=== PATIENT | male | born 1990 | race Two or more races ===

== ENCOUNTER 2022-01-15 08:38 | Emergency (ER) | payer MEDICAID ==
[~2022-01-15] VITALS: Ht 172.7 cm; Wt 95.3 kg
--- NOTE | 2022-01-15 08:49 | NUR ---
JENNIFER 62 FROM , C/O SOB, BINGE DRINKING X 3 DAYS, ADMITS TO CONSUMING 3 CASES OF BEER /DAY, LAST USED COCAINE A YEAR AGO, HYPERVENTILATING. TO ER BED 13.
[2022-01-15] MEDS ORDERED: LORAZEPAM INJ 2 MG/ML VIAL IV ONE ×2 (09:00→13:30)
[2022-01-15] MEDS ORDERED: IV NS 0.9% 1,000 ML IV ONE ×2 (09:00→13:30)
[2022-01-15] MEDS ORDERED: LORAZEPAM INJ 2 MG/ML VIAL ONE ×2 (09:01→13:17)
--- NOTE | 2022-01-15 13:09 | NUR ---
DR LARA SPEAKING W/ PT, BROADCAST TRANSMITTER OPERATOR AT BEDSIDE
[2022-01-15 13:32] LABS: BASOPHILS % (AUTO) 0.3 % (0.0-2.0); EOSINOPHILS % (AUTO) 0.1 % (0.0-6.0); HEMATOCRIT 47 % (39-51); HEMOGLOBIN 16.2 g/dL (13.5-17.5); LYMPHOCYTES # (AUTO) 2.4 K/uL (0.8-4.8); LYMPHOCYTES % (AUTO) 17.1 % (20.0-44.0); MEAN CORPUSCULAR HGB CONC 35 g/dl (31.0-36.0); MEAN CORPUSCULAR VOLUME 90 fL (80-96); MONOCYTES % (AUTO) 6.9 % (2.0-12.0); NEUTROPHILS # (AUTO) 10.5 K/uL (1.8-8.9); NEUTROPHILS % (AUTO) 75.6 % (43.0-81.0); PLATELET COUNT (AUTO) 332 K/uL (150-450); RED BLOOD CELL COUNT(AUTO) 5.19 MIL/uL (4.5-6.0)
[2022-01-15 13:42] LABS: CALCIUM, SERUM 9.6 mg/dL (8.5-10.1); CREATININE 1.4 mg/dL (0.6-1.3); POTASSIUM 3.6 mmol/L (3.5-5.1)
[2022-01-15 13:48] LABS: ALBUMIN 4.2 g/dL (3.4-5.0); BILIRUBIN,TOTAL 1.2 mg/dL (0.2-1.0); TOTAL PROTEIN, SERUM 8.2 g/dL (6.4-8.2)
[2022-01-15] MEDS ORDERED: CHLO25CA22 PO (15:27)
--- NOTE | 2022-01-15 15:43 | NUR ---
SPOKE W/ JADA (SISTER) W/ JET MECHANIC; STATED THAT THEY WILL DONOR SERVICES SPECIALIST PT.
--- NOTE | 2022-01-15 16:00 | NUR ---
IV removed. Catheter intact and site benign. Pressure and 4x4 applied to site. No bleeding noted.
--- NOTE | 2022-01-15 16:07 | NUR ---
Patient discharged to home in stable condition. Written and verbal after care instructions given. Patient verbalizes understanding of instruction.
[2022-01-15 16:11] VITALS: BP 124/74
== END 2022-01-15 16:11 | disposition home or self-care (01) ==
LOC: ER 08:38
DX: F10.139 Alcohol abuse with withdrawal, unspecified (principal); E86.0 Dehydration; F41.9 Anxiety disorder, unspecified; Z88.0 Allergy status to penicillin; Z79.899 Other long term (current) drug therapy; Y90.9 Presence of alcohol in blood, level not specified
CPT/HCPCS: 99284; 96374; 96361; 93005 ×2; 96376; 85025; 36415; 80053; J2060 ×2; J7030 ×2; J7040

== ENCOUNTER 2022-02-09 11:42 | Emergency (ER) | payer MEDICAID ==
[~2022-02-09] VITALS: Ht 172.7 cm; Wt 95.3 kg
[~2022-02-09 11:42] MED LIST: CHLO25CA22 PO
--- NOTE | 2022-02-09 13:30 | NUR ---
PT SEEN BY FOR EVSONAM
[2022-02-09] MEDS ORDERED: CHLO25CA22 PO (13:44)
[2022-02-09] MEDS ORDERED: CHLORDIAZEPOXIDE HCL 25 MG CAPSULE ONE (13:47)
--- NOTE | 2022-02-09 13:50 | NUR ---
LIBRIUM 50MG PO GIVEN INDICATED, RICHARD WELL
--- NOTE | 2022-02-09 13:55 | NUR ---
Patient discharged to home in stable condition. Written and verbal after care instructions given. Patient verbalizes understanding of instruction.
[2022-02-09 13:57] VITALS: BP 134/70
[2022-02-09] MEDS ORDERED: CHLORDIAZEPOXIDE HCL 25 MG CAPSULE PO ONE (14:00)
[2022-02-10] MEDS ORDERED: ERYT3.5O9 EACHEYE (18:38)
== END 2022-02-09 13:58 | disposition home or self-care (01) ==
LOC: ER 11:45
DX: F10.239 Alcohol dependence with withdrawal, unspecified (principal); Z88.0 Allergy status to penicillin; Z60.2 Problems related to living alone; Z79.899 Other long term (current) drug therapy; Y90.9 Presence of alcohol in blood, level not specified

== ENCOUNTER 2022-02-10 17:29 | Emergency (ER) | payer MEDICAID ==
[~2022-02-10] VITALS: Ht 167.6 cm; Wt 95.7 kg
--- NOTE | 2022-02-10 18:20 | NUR ---
PT SEEN BY DR LARA AT BEDSIDE
[2022-02-10] MEDS ORDERED: FLUORESCEIN SODIUM OPHTH 1 EA STRIP ONE ×2 (18:23→18:25)
[2022-02-10] MEDS ORDERED: FLUORESCEIN SODIUM OPHTH 1 EA STRIP OP ONE (18:30)
[2022-02-10] MEDS ORDERED: TETRACAINE HCL 0.5% OPHTALMIC 15 ML BOTTLE OP ONE (18:30)
[2022-02-10] MEDS ORDERED: ERYT3.5O9 EACHEYE (18:38)
--- NOTE | 2022-02-10 20:35 | NUR ---
Patient discharged to home in stable condition. Written and verbal after care instructions given. Patient verbalizes understanding of instruction.
[2022-02-10] MEDS ORDERED: IBUPROFEN 400 MG TABLET ONE (20:44)
[2022-02-10] MEDS ORDERED: IBUPROFEN 400 MG TABLET PO ONE (21:00)
[2022-02-10 21:42] VITALS: BP 138/96
== END 2022-02-10 21:42 | disposition home or self-care (01) ==
LOC: ER 17:35
DX: T15.02XA Foreign body in cornea, left eye, initial encounter (principal); Z60.2 Problems related to living alone; Z88.0 Allergy status to penicillin; X50.1XXA Overexertion from prolonged static or awkward postures, initial encounter; Y93.89 Activity, other specified; Y92.89 Other specified places as the place of occurrence of the external cause; Y99.8 Other external cause status
CPT/HCPCS: 99284; 65205; J7030